=== PATIENT | female | born 1940 | race African-American/Black ===

== ENCOUNTER 2016-10-11 18:15 | Emergency (ER) | payer OTHER, MEDICARE ==
[~2016-10-11] VITALS: Ht 157.5 cm; Wt 68.0 kg
[~2016-10-11 18:15] MED LIST: LOPRESSOR 25MG25 MG PO; SIMVASTATIN40 MG PO; SPIRONOLACTONE50 MG PO
[2016-10-11 18:56] LABS: ABSOLUTE BASOPHIL COUNT 0 /CUMM (0.0-0.2); ABSOLUTE EOSINOPHIL COUNT 0.1 /CUMM (0.0-0.7); ABSOLUTE GRANULOCYTE CT 2.5 /CUMM (1.4-6.5); ABSOLUTE LYMPH COUNT 1.6 /CUMM (1.2-3.4); ABSOLUTE MONOCYTE COUNT 0.5 /CUMM (0.10-0.60); BASOPHIL % 0.7 % (0.0-2.0); EOSINOPHIL % 3.1 % (0-5); HEMATOCRIT 40.2 % (37-47); MEAN CORPUSCULAR HGB 32.2 PG (27.0-31.0); MEAN CORPUSCULAR HGB CONC 33.1 G/DL (33.0-37.0); MEAN CORPUSCULAR VOLUME 97.4 FL (81.0-99.0); MEAN PLATELET VOLUME 8.1 FL (7.4-10.4); PLATELET COUNT 186 /CUMM (130-400); RBC DISTRIBUTION WIDTH 13.9 % (11.5-14.5); RED BLOOD CELL CT 4.13 /CUMM (4.20-5.40); WHITE BLOOD CELL COUNT 4.7 /CUMM (4.8-10.8)
--- NOTE | 2016-10-11 19:28 | ED CARDIAC/CP/PALPITATIONS ---
History of Present Illness General Chief Complaint: Chest Pain Stated Complaint: CP Source: patient, family, old records Exam Limitations: no limitations Vital Signs & Intake/Output Vital Signs & Intake/Output Vital Signs Date Time Temp Pulse Resp B/P Pulse O2 O2 Flow FiO2 Ox Delivery Rate 10/113 97.2 64 16 167/77 98 Room Air 10/11 1830 97.7 67 16 154/79 97 Room Air Allergies Coded Allergies: NO KNOWN ALLERGIES (02/18/16) Reconcile Medications Metoprolol Tartrate (Lopressor) 25 MG TABLET 1 TAB PO BID BP (Reported) Simvastatin 40 MG TABLET 0.5 TAB PO QPM CHOLESTEROL (Reported) Spironolactone 50 MG TABLET 1.5 TAB PO DAILY BP (Reported) Triage Note: PT C/O CHEST PAIN THAT STARTED ON SUNDAY . PT REPORTS THE PAIN COMES AND GOES. PT STATES TODAY THEY HAVE NOT BEEN FRQUENT SUNDAY. PT DENIES SOB OR DIAPHORESIS. PT STATES THOUGHT SHE HAD INDIGESTION AND TODAY SHE FELT TINGLING IN HER RIGHT ARM ALONG WITH THE CHEST DISCOMFORT. PT REPORTS SHE TOOK 81 MG OF ASA JUST [employer] Triage Nurses Notes Reviewed? yes HPI: Patient presents with intermittent left-sided substernal chest heaviness since yesterday. She's states that the pain will last anywhere from a few seconds to up to 10 minutes. There is no radiation when she gets the pain. No aggravating or mitigating factors. When she has a heaviness she rates it has a 4 out of 10. There is no shortness of breath. There is no nausea or vomiting. Patient was seen by Dr. Robert within the past year and had a stress test which was normal. Past History Travel History Traveled to [place] past 21 day No Medical History Any Pertinent Medical History? see below for history Neurological: NONE EENT: NONE Cardiovascular: hypertension, hyperlipidemia Respiratory: NONE Gastrointestinal: NONE Hepatic: NONE Renal: NONE Musculoskeletal: NONE Psychiatric: NONE Endocrine: NONE Blood Disorders: NONE Cancer(s): NONE Surgical History Surgical History: non-contributory Psychosocial History What is your primary language Occitan Tobacco Use: Never used ETOH Use: denies use Illicit Drug Use: denies illicit drug use Family History Hx Contributory? No Review of Systems Review of Systems Constitutional: Reports: no symptoms. EENTM: Reports: no symptoms. Respiratory: Reports: no symptoms. Cardiovascular: Reports: see HPI, chest pain. GI: Reports: no symptoms. Genitourinary: Reports: no symptoms. Musculoskeletal: Reports: no symptoms. Skin: Reports: no symptoms. Neurological/Psychological: Reports: no symptoms. Hematologic/Endocrine: Reports: no symptoms. Immunologic/Allergic: Reports: no symptoms. All Other Systems: Reviewed and Negative Physical Exam Physical Exam General Appearance: well developed/nourished, alert, awake, anxious, mild distress Head: atraumatic, normal appearance Eyes: Bilateral: PERRL, EOMI. Ears, Nose, Throat: normal pharynx, normal ENT inspection Neck: normal inspection, supple, full range of motion Respiratory: normal breath sounds, chest non-tender, no respiratory distress, lungs clear Cardiovascular: regular rate/rhythm, normal peripheral pulses Gastrointestinal: normal bowel sounds, soft, non-tender, no organomegaly Back: normal inspection Extremities: normal inspection, normal capillary refill, normal range of motion, no edema Neurologic/Psych: no motor/sensory deficits, awake, alert, oriented x 3, normal mood/affect Skin: intact, normal color, warm/dry Core Measures ACS in differential dx? Yes Severe Sepsis Present: No Septic Shock Present: No Progress Differential Diagnosis: AMI, cholecystitis, hyperkalemia, musculoskeletal pain, myocarditis, pericarditis, pneumonia, pneumothorax, pulmonary embolism Plan of Care: Orders Procedure Date/time Status TROPONIN LEVEL 10/11 2229 Complete EKG 10/11 2229 Active TROPONIN LEVEL 10/11 183 Complete COMPREHENSIVE METABOLIC PANEL 10/11 183 Complete CBC WITHOUT DIFFERENTIAL 10/11 1829 Complete EKG 10/11 1820 Active Laboratory Tests 10/11/16 2220: Troponin I < 0.01 10/11/16 1833: Anion Gap 8, Estimated GFR 44 L, BUN/Creatinine Ratio 12.5, Glucose 111 H, Calcium 9.8, Total Bilirubin 0.4, AST 23, ALT 35, Alkaline Phosphatase 55, Troponin I < 0.01, Total Protein 7.0, Albumin 3.8, Globulin 3.2, Albumin/ Globulin Ratio 1.2, CBC w Diff NO MAN DIFF REQ, RBC 4.13 L, MCV 97.4, MCH 32.2 H, RDW 13.9, MPV 8.1, Gran % 53.0, Lymphocytes % 33.3, Monocytes % 9.9 H, Eosinophils % 3.1, Basophils % 0.7, Absolute Granulocytes 2.5, Absolute Lymphocytes 1.6, Absolute Monocytes 0.5, Absolute Eosinophils 0.1, Absolute Basophils 0, PUBS MCHC 33.1 Diagnostic Imaging: Viewed by Me: Radiology Read. Discussed w/RAD: Radiology Read. Initial ED EKG: NSR, nonspecific ST T wave chg Prior EKG: unchanged Comments: Patient had an episode of chest pain during the history but the pain was gone in by the time that she did tell me that she was having pain. Patient advised to let us know if she has any more pain so he can attempt to get an EKG while she is having active pain. The case was discussed with Dr. Robert. Patient has stress test less than a year ago which was normal. Will obtain 2 sets of enzymes and is almost pulsatile negative the patient will be discharged home with close follow-up with Dr. Robert. Departure Departure Disposition: HOME OR SELF CARE Condition: Stable Clinical Impression Primary Impression: Chest pain, unspecified Qualifiers: Chest pain type: other chest pain Qualified Code: R07.89 - Other chest pain Referrals: ROLAN LUDWIG,ANDRE HAYNES MD,JAYESH Muñoz (PCP/Family) Additional Instructions: Follow-up with Dr. Robert. Return if symptoms worsen or for any concerns. Departure Forms: Customer Survey General Discharge Information Critical Care Note Critical Care Note Critical Care Time: non-applicable
--- NOTE | 2016-10-11 20:47 | RADIOLOGY REPORT ---
EXAMINATION: XR CHEST CLINICAL INFORMATION: 75-year-old woman with chest pain. COMPARISON: 06/06/2014 chest radiograph report TECHNIQUE: 2 views of the chest were obtained. FINDINGS: The lungs are well expanded and clear, without evidence of focal airspace consolidation or overt pulmonary edema. Heart size is within the range of normal. There are no pleural effusions. IMPRESSION: No radiographic evidence of an acute cardiopulmonary process.
[2016-10-11 23:18] VITALS: BP 162/74
== END 2016-10-11 23:24 ==
LOC: ERH 18:15
PROVIDERS: Emergency Medicine
DX: R07.2 Precordial pain (principal)
CPT/HCPCS: 93005; 93010